=== PATIENT | female | born 1970 | race Caucasian/White ===

== ENCOUNTER 2018-01-19 07:48 | Day surgery (SDC) | payer BC ==
[2018-01-15 09:56] LABS: BASOPHILS % (AUTO) 0.3 % (0.0-2.0); EOSINOPHILS % (AUTO) 0.5 % (0.0-4.0); HEMATOCRIT 42.2 % (36-48); LYMPHOCYTES # (AUTO) 2.3 K/uL (2.5-16.5); LYMPHOCYTES % (AUTO) 25.1 % (20.5-51.1); MEAN CORPUSCULAR HEMOGLOBIN 28 pg (27-31); MEAN CORPUSCULAR HGB CONC 33 g/dL (33-37); MEAN CORPUSCULAR VOLUME 84.1 fL (80-94); MONOCYTES # (AUTO) 0.5 K/uL (0.8-1.0); MONOCYTES % (AUTO) 5.7 % (1.7-9.3); NEUTROPHILS # (AUTO) 6.2 K/uL (1.8-7.7); NEUTROPHILS % (AUTO) 68.4 % (42.2-75.2); PLATELET COUNT (AUTO) 209 K/uL (140-450); RED BLOOD CELL COUNT(AUTO) 5.02 MIL/uL (4.20-5.40); RED CELL DISTRIBUTION WIDTH 13.9 % (11.6-13.7); WHITE BLOOD COUNT (AUTO) 9.1 K/uL (4.8-10.8)
[2018-01-15 10:38] LABS: ALBUMIN 3.8 g/dL (3.4-5.0); ANION GAP 12.8 (8-16); CARBON DIOXIDE 22.8 mmol/L (21-32); POTASSIUM 3.6 mmol/L (3.5-5.1); TOTAL BILIRUBIN 0.4 mg/dL (0.0-1.0)
[~2018-01-19] VITALS: Ht 154.9 cm; Wt 66.2 kg
[2018-01-19] MEDS ORDERED: CEFAZOLIN SODIUM 2 GM/D5W PM 50 ML IV SCH (08:35)
[2018-01-19] MEDS ORDERED: CEFAZOLIN SODIUM 1 GM/D5W PM 50 ML IV SCH (10:55)
[2018-01-19] MEDS ORDERED: BUPIVACAINE-MPF 0.25% 30 ML VIAL INJ ONE (13:18)
[2018-01-19] MEDS ORDERED: DEXAMETHASONE 4 MG/ML VIAL IVP ONE (13:20)
[2018-01-19] MEDS ORDERED: PROPOFOL 200 MG/20 ML VIAL IV ONE (13:20)
[2018-01-19] MEDS ORDERED: ONDANSETRON 4 MG/2 ML VIAL IVP ONE (13:20)
[2018-01-19] MEDS ORDERED: KETOROLAC 30 MG/ML VIAL IVP ONE (13:20)
[2018-01-19] MEDS ORDERED: SEVOFLURANE 250 ML BTL INH ONE (13:20)
[2018-01-19] MEDS ORDERED: fentaNYL 0.05 MG/ML VIAL ONE (13:26)
[2018-01-19] MEDS ORDERED: HYDROcodone/APAP 5/325 MG 1 TAB TAB PO PRN (14:35)
[2018-01-19] MEDS ORDERED: MORPHINE SULFATE 2 MG/ML SYR IVP PRN (14:35)
[2018-01-19] MEDS ORDERED: HYDROmorphone 1 MG/ML AMP IVP PRN (14:35)
[2018-01-19] MEDS ORDERED: MORPHINE SULFATE 4 MG/ML SYR IV PRN (14:35)
[2018-01-19] MEDS ORDERED: ACETAMINOPHEN 325 MG TAB PO PRN (14:35)
[2018-01-19] MEDS ORDERED: ONDANSETRON 4 MG/2 ML VIAL IV PRN (14:35)
== END 2018-01-19 17:10 | disposition home or self-care (01) ==
LOC: MDS 07:48 → MMU 07:48 → MTU 15:05 → MDS 17:10
PROVIDERS: ATTEND Surgery
DX: D24.2 Benign neoplasm of left breast (principal); Z98.890 Other specified postprocedural states; Z79.899 Other long term (current) drug therapy
CPT/HCPCS: 19125; 36415; 71045; 80053; 81025; 85025; J0690; J1100; J1885; J2405; J2704; J3010; J3490; J7030; J7120; 93005